=== PATIENT | female | born 1980 | race Caucasian/White ===

== ENCOUNTER 2016-06-20 11:53 | Emergency (ER) | payer OTHER ==
--- NOTE | ~2016-06-20 | CT17 ---
[facility] A Service of [facility] RADIOLOGY TEXT RESULTS PATIENT: IQRA SCHULTZ LOCATION: [facility] : 82 UNIT #: [id number] AGE: [address]: Fritz Cruz MD SEX: F ORDER DR: [id number] [facility] [address] [place], [place] [address] [id number] MR#: [id number] Acc #: [id number] NAME: IQRA SCHULTZ. : 1980 SEX: F STUDY DATE/TIME: 06/20/2016 13:35 UNIT: [facility] ROOM: STUDY DESCRIPTION: CT Angio Head Attending Physician: Fritz Cruz M.D. Ordering Physician: Fritz Cruz M.D. Primary Care Physician: Vivi Martinez A.P.R.N. MEDICAL IMAGING REPORT This report is preliminary unless electronic signature is present EXAM Head CT angiogram, 06/20/2016 HISTORY Headache and photophobia since last night. Study is performed on 06/20/2016. Because of technical difficulties with the exam, final interpretation has been delayed. PROCEDURE Axial contrast-enhanced head CT angiogram with three-dimensional reformats. This CT exam was performed with one or more of the following radiation dose reduction techniques: automatic exposure control, adjustment of mA and/or kV according to patient size, and iterative reconstruction. FINDINGS Suboptimal bolus timing and slight patient motion produced a nearly nondiagnostic exam. The basilar artery and both internal carotid arteries are patent. The appears to be a left posterior cerebral origin. There is grossly symmetric vascularity, but no viable confident evaluation for potential aneurysm or flow-limiting stenosis can be performed. No gross evidence of mass or abnormal enhancement. IMPRESSION Technically limited and essentially nondiagnostic CT angiogram. There is grossly symmetric vascularity but no confident statement can be made regarding the presence or absence of flow-limiting stenosis or regarding the presence or absence of small aneurysm. No gross or gigantic aneurysm is seen. Otherwise negative. Dictated by... Elijah Pedroza M.D. [facility] A Service of [facility] RADIOLOGY TEXT RESULTS PATIENT: IQRA SCHULTZ LOCATION: [facility] : 82 UNIT #: [id number] AGE: [address]: Fritz Cruz MD SEX: F ORDER DR: THIS IS AN ELECTRONICALLY VERIFIED REPORT Elijah Pedroza M.D. at 06/24/2016 3:56 PM Pepper TD: 06/23/2016 12:28 JOB #: [id number] MEDICAL IMAGING REPORT Page 1 of 1 COPY
[~2016-06-20 11:53] MED LIST: AMOXICILLIN500 M1 PO; ATENOLOL25 MG PO; AURALGAN EAR DR14 ML OT; LORTAB 5/500 TA1 TA1 PO; LORTAB ELIXIR15 ML PO; NO MEDICATIONS; VICODIN 5/1 TAB 5/50 PO; ZOFRAN PO
[2016-06-20 12:47] LABS: BASOPHIL# 0.1 X10e3 (0-0.3); BASOPHIL% 1.2 % (0-2.5); EOSINOPHIL# 0.3 X10e3 (0-0.7); EOSINOPHIL% 3.6 % (0.0-7.0); HEMATOCRIT 44.8 % (35.0-45.0); HEMOGLOBIN 15.1 gm/dL (12.0-16.0); LYMPHOCYTE# 1.9 X10e3 (1.0-3.5); LYMPHOCYTE% 22.8 % (17.0-45.0); MEAN CELL VOLUME 87.1 FL (83-96); MEAN CORPUSCULAR HEMOGLOBIN 29.3 PG (28-34); MEAN CORPUSCULAR HGB CONC 33.7 g/dL (30-36); MEAN PLATELET VOLUME 10.4 FL (6.5-11.5); MONOCYTE# 0.5 X10e3 (0-1.0); MONOCYTE% 5.5 % (3.0-12.0); NEUTROPHIL# 5.6 X10e3 (1.5-7.1); NEUTROPHIL% 66.9 % (40-75); PLATELET COUNT 172 X10e3 (140-420); RED BLOOD COUNT 5.15 X10e (3.90-5.30); RED CELL DISTRIBUTION WIDTH 13.9 % (11.0-15.5); WHITE BLOOD COUNT 8.4 X10e3 (4.0-10.5)
[2016-06-20 12:54] LABS: DIFF IND NO
[2016-06-20 13:12] LABS: BUN/CREATININE RATIO 14.28; CALCIUM SERUM 8.8 mg/dL (8.4-10.2); CREATININE SERUM 0.7 mg/dL (0.6-1.4); POTASSIUM 3.8 mmol/L (3.5-5.1)
== END 2016-06-20 15:42 | disposition home or self-care (01) ==
LOC: CED 11:53
PROVIDERS: Emergency Medicine
DX: H66.92 Otitis media, unspecified, left ear (principal)
CPT/HCPCS: 70496; 80048; 84703; 85025; 99284; J0780; J1200; Q9967